=== PATIENT | female | born 1950 | race Caucasian/White ===

== ENCOUNTER 2017-09-16 16:19 | Emergency (ER) | payer MEDICARE, OTHER ==
[~2017-09-16] VITALS: Ht 170.2 cm; Wt 59.1 kg
[~2017-09-16 16:19] MED LIST: ADVIL200 MG PO; ASPIRIN E.C. 8181 MG PO; BENICAR HCT 12.1 TAB PO; CALCIUM + D 5001 TAB PO; COREG 3.123.125 MG/T PO; LASIX 20MG TABL20 MG PO; LIPITOR20 MG PO; LUTEIN8MG PO; MICROTHENE FN501 POW; MULTIVITAMIN WI1 CTB PO; TYLENOL 325MG325 MG PO; ULTRAM 50MG TAB50 MG PO; VITAMIN FOR EYES; [UNRECOGNIZED DRUG - OTHER]; [UNRECOGNIZED DRUG - OTHER]
[2017-09-16 16:33] VITALS: TEMP 98.5
[2017-09-16 17:01] LABS: BASO # 0.1 (0.0-0.2); EOS # 0.4 (0.0-0.7); EOS % 5.8 % (0-4.0); GRAN # 3.1 (1.4-6.5); GRAN % 50.5 % (42.2-75.2); HEMOGLOBIN 12.1 g/dl (12.5-16.0); MEAN CELL VOLUME 95 fl (80.0-100.0); MEAN CORPUSCULAR HEMOGLOBIN 32 pg (27.0-31.0); MEAN CORPUSCULAR HGB CONC 34 g/dl (33.0-37.0); MEAN PLATELET VOLUME 8.3 fl (7.4-10.4); MONO # 0.7 (0.1-0.6); MONO % 10.5 % (1.7-9.3); PLATELET COUNT 328 K/mm3 (130-400); RED BLOOD COUNT 3.75 M/mm3 (4.10-5.30); WHITE BLOOD COUNT 6.2 K/mm3 (4.8-10.8)
[2017-09-16 17:07] LABS: HEMATOCRIT 35.6 % (37.0-47.0)
[2017-09-16 17:13] LABS: INR 1.5 (0.8-3.0); PROTHROMBIN TIME 17.2 SECONDS (9.7-12.8)
[2017-09-16 17:18] LABS: ADJUSTED CALCIUM 8.9 mg/dL (8.4-10.2); ALANINE AMINOTRANSFERASE 38 U/L (9-52); ALBUMIN 4.1 gm/dL (3.5-5.0); ALKALINE PHOSPHATASE 79 U/L (50-136); ANION GAP 10 mmol/L (7-16); BILIRUBIN,TOTAL 0.5 mg/dL (0.0-1.0); BLOOD UREA NITROGEN 14 mg/dL (7-17); CARBON DIOXIDE 25 mmol/L (22-30); CHLORIDE 95 mmol/L (98-107); CREATINE KINASE 72 U/L (30-135); CREATININE, serum 1.17 mg/dL (0.52-1.25); GLUCOSE 104 mg/dL (74-106); POTASSIUM 3.6 mmol/L (3.4-5.0); SODIUM 130 mmol/L (137-145); TOTAL PROTEIN 7.8 gm/dL (6.4-8.2)
[2017-09-16 17:30] LABS: B-TYPE NATRIURETIC PEPTIDE 158 pg/mL (0-125)
[2017-09-16 17:32] LABS: TROPONIN-I < 0.012 ng/mL (0.000-0.034)
[2017-09-16] MEDS ORDERED: AMOXICILLIN 8751 TAB PO (19:43)
[2017-09-16 21:16] VITALS: BP 145/85; PULSE 65
== END 2017-09-16 21:16 | disposition home or self-care (01) ==
LOC: COL.ER 16:19
PROVIDERS: Emergency Medicine
DX: J32.9 Chronic sinusitis, unspecified (principal); R07.9 Chest pain, unspecified; I10 Essential (primary) hypertension; E78.5 Hyperlipidemia, unspecified; I48.91 Unspecified atrial fibrillation; Z90.49 Acquired absence of other specified parts of digestive tract; Z90.89 Acquired absence of other organs; Z98.890 Other specified postprocedural states; Z79.82 Long term (current) use of aspirin

== ENCOUNTER 2017-11-12 18:17 | Emergency (ER) | payer MEDICARE, OTHER ==
[~2017-11-12] VITALS: Ht 170.2 cm; Wt 61.4 kg
[~2017-11-12 18:17] MED LIST changes: +AMOXICILLIN 8751 TAB PO
[2017-11-12 18:23] VITALS: TEMP 98.9
[2017-11-12 19:21] LABS: COLLECTION METHOD CLEAN CATCH
[2017-11-12 19:27] LABS: PH 5 (5-8); URINE APPEARANCE Clear; URINE BACTERIA Rare /hpf; URINE BILIRUBIN Negative (NEGATIVE); URINE BLOOD Negative (NEGATIVE); URINE COLOR Yellow; URINE GLUCOSE Negative (NEGATIVE); URINE KETONE Negative (NEGATIVE); URINE LEUKOCYTE ESTERASE 2+ (NEGATIVE); URINE NITRATE Negative (NEGATIVE); URINE PROTEIN(semi-quant) Negative (NEGATIVE); URINE UROBILINOGEN Negative (NEGATIVE)
[2017-11-12] MEDS ORDERED: COLACE 100100 MG/CAP PO (21:43)
[2017-11-12 22:06] VITALS: BP 170/74; PULSE 66
== END 2017-11-12 22:06 | disposition home or self-care (01) ==
LOC: COL.ER 18:17
PROVIDERS: Emergency Medicine
DX: K59.00 Constipation, unspecified (principal); Z90.710 Acquired absence of both cervix and uterus; Z79.82 Long term (current) use of aspirin

== ENCOUNTER 2020-05-19 14:17 | Inpatient (IN) | payer MEDICARE, OTHER ==
[~2020-05-19] VITALS: Ht 170.2 cm; Wt 70.0 kg
[~2020-05-19 14:17] MED LIST changes: -CALCIUM + D 5001 TAB PO; +COLACE 100100 MG/CAP PO; +DYMISTA1 SPR NS; +OS-CAL 500 + D1 TAB PO; -[UNRECOGNIZED DRUG - OTHER]
[2020-07-29] VITALS (7 sets, daily range): BP systolic 91–122; BP diastolic 57–69; PULSE 71–79; TEMP 97.6–98.5
[2020-07-29] MEDS ORDERED: COREG 6.256.25 MG/TA PO (07:41)
[2020-07-29] MEDS ORDERED: MACRODANTIN100 PO (07:42)
[2020-07-29] MEDS ORDERED: LIPITOR20 MG PO (07:42)
[2020-07-29] MEDS ORDERED: BENICAR HCT 251 TAB PO (07:43)
[2020-07-29] MEDS ORDERED: PHENERGAN 25 TA25 MG (07:44)
[2020-07-29] MEDS ORDERED: FERROUSAL325 MG PO (07:45)
[2020-07-29] MEDS ORDERED: BACTROBAN 22GM22 GM TP (07:45)
[2020-07-29] MEDS ORDERED: FOLIC ACID0.4 MG PO (07:46)
[2020-07-29] MEDS ORDERED: ADVIL200 MG PO (07:48)
[2020-07-29] MEDS ORDERED: XARELTO10 MG PO (07:59)
[2020-07-29 08:16] LABS: COLLECTION METHOD CATHETER
[2020-07-29 08:21] LABS: PH 7 (5-8); SQUAMOUS EPITHELIAL None Seen /hpf; URINE APPEARANCE Clear; URINE BACTERIA None Seen /hpf; URINE BILIRUBIN Negative (NEGATIVE); URINE BLOOD Negative (NEGATIVE); URINE COLOR Yellow; URINE GLUCOSE Negative (NEGATIVE); URINE KETONE Negative (NEGATIVE); URINE LEUKOCYTE ESTERASE Negative (NEGATIVE); URINE NITRATE Negative (NEGATIVE); URINE PROTEIN(semi-quant) Negative (NEGATIVE); URINE RBC 0-2 /hpf; URINE UROBILINOGEN Negative (NEGATIVE)
--- NOTE | 2020-07-29 13:39 | NUR ---
[employer] Faculty Member met with patient's , Olga (ph#[phone]) to discuss discharge planning as patient was still in surgery at this time. KARAN collaborated with RN, Analy who advised patient was having some pain down in the PACU which delayed her coming back up. Olga advised that he and patient live on a farm outside of [place], [place] with their two dogs. Olga states that patient was seeing Dr. Kim for primary care but that she moved, so patient recently switched to a provider in [place]. Patient obtains medications from [facility] in [place] with no difficulties. Patient does not normally use any DME but has a walker for when she discharges. Olga reports patient is normally independent with ADLS and plans to return home with outpatient PT, which has been set up in [place]. Olga states he and patient have discussed updating DPOA-HC as the one they completed was done over 20 years ago. SW will follow up with patient to assist with DPOA if she desires. Olga advised they have a son that is an immigration attorney in [facility]. KARAN will continue to follow for any discharge needs.
--- NOTE | 2020-07-29 13:40 | NUR ---
PATIENT BACK IN ROOM 328 POST OP. ORIENTED BUT DROWSY. VSS. PACU REPORTED PAIN ISSUES. PATIENT WAS GIVEN SEVERAL DIFFERENT PAIN MEDS TO HELP WITH PAIN. LTK DRESSING IS CD&I WITH ACEWRAP AND ICE PACK IN PLACE. TEDS TO RLE. SCD'S TO BLE. POSITIVE PEDAL PULSES TO BLE. NO C/O N/V. LIQUIDS AT BEDSIDE. IV FLUIDS INFUSING VIA PUMP INTO LEFT HAND IV. HEAD TO TOE ASSESSMENT WNL. AT BEDSIDE. CALL LIGHT IN REACH.
--- NOTE | 2020-07-29 14:30 | NUR ---
Initial visit; Patient thanked Adjunct Faculty for looking in on her and offering prayer and God's blessings for a thorough and rapid recovery.
--- NOTE | 2020-07-29 15:50 | NUR ---
PATIENT 1-2 ASSIST TO BEDSIDE COMMODE. PATIENT WAS NAUSEATED DURING ACTIVITY. PATIENT WAS ABLE TO VOID AND HAVE BM POST OP. PATIENT IS NOW BACK IN BED RESTING.
--- NOTE | 2020-07-29 19:27 | NUR ---
RECEIVED CHANGE OF SHIFT REPORT FROM DAY SHIFT NURSEMEREDITH. PATIENT SLEEPING DURING REPORT.
--- NOTE | 2020-07-29 20:00 | NUR ---
DECREASED ROM/STRENGTH TO L KNEE D/T SURGERY. DENIES NUMBNESS/TINGLING TO EXTREMITIES. DENIES CHEST PAIN/SHORTNESS OF BREATH. PATIENT IN CONTACT ISOLATION. IVF INFUSING WITH NO PROBLEMS, PATIENT NAUSEA AFTER AMBULATING TO AND FROM BATHROOM AND SHORT DISTANCE AROUND FOOT OF BED THEN DANGLING AT BEDSIDE. OBSERVED NO EMESIS, HAD DRY HEAVES. OXYGEN CONTINUES PER NC, INITALLY AT 2LPM THAT WAS DECREASED PER RT REC TO 1 LPM.
[2020-07-30] VITALS (7 sets, daily range): BP systolic 90–134; BP diastolic 50–75; PULSE 80–111; TEMP 97.9–98.6
[2020-07-30 06:59] LABS: HEMATOCRIT 27.8 % (37.0-47.0); HEMOGLOBIN 9.4 g/dl (12.5-16.0)
--- NOTE | 2020-07-30 07:41 | NUR ---
CHANGE OF SHIFT REPORT GIVEN TO DAY SHIFT NURSELENORE. SALINE LOCK IN PLACE. DENIES URGE TO VOID.
--- NOTE | 2020-07-30 07:56 | NUR ---
CONTACTED PACU STAFF RE:MEDICATION REVIEW PER REQUEST.
--- NOTE | 2020-07-30 09:58 | NUR ---
PT UP TO RECLINER FOR BREAKFAST WITH SBA X1, PAIN CONTROLLED WITH PO MEDS. DRESSING CHANGE COMPLETE PER ORDERS. AQUCEL PLACED OVER INCISION. PT TOLERATED WELL. TEDS PLACED BILATERALLY. PT DENIES NEEDS AT THIS TIME.
--- NOTE | 2020-07-30 16:42 | NUR ---
Driller Helper followed up with patient to review discharge plan. Patient states she is in the process of switching primary care to [place], but would like to have a recommendation for providers. Patient may be interested in [facility]. Patient is interested in DPOA-HC form, SW provided. Patient plans to return home upon discharge and SW will continue to follow.
--- NOTE | 2020-07-30 17:44 | NUR ---
PT UP TO BR WITH SBAX1 VOIDED AND RETURNED TO BED.
--- NOTE | 2020-07-30 20:00 | NUR ---
Received report from Bryan Jordan. Pt currently sitting in bed and has her call light within reach and her bed is in lowest position.
--- NOTE | 2020-07-31 02:48 | NUR ---
Pt is currently back in bed. Pt ambulated to the restroom. When asked if she was having pain pt stated yes but she doesn't need anything right now. Pt did seem a little confused when she go up to ambulate to the restroom .Pt has her call light within reach and her bed is in lowest position.
[2020-07-31 04:00] VITALS: BP 134/62; PULSE 87; TEMP 97.9
--- NOTE | 2020-07-31 06:56 | NUR ---
Reported off to EDDIE Jordan.Pt has her breakfast tray and is eating her breakfast at this time. She has her call light within reach.
[2020-07-31 07:41] VITALS: BP 138/50; PULSE 84; TEMP 98
--- NOTE | 2020-07-31 08:34 | NUR ---
PT UP TO RECLINER FOR BREAKFAST. VOIDED AND RETURNED TO RECLINER. DRESSING TO LEFT KNEE CDI. PT IS HAVING SOME DIFFICULTY FINDING WORDS. POSSIBLY R/T NARCOTICS, ULTRAM USED FOR PAIN AT THIS TIME. NOC SHIFT REPORTED SIMILAR ISSUES. DECREASED TO 1 PAIN PILL OVER NOC.
--- NOTE | 2020-07-31 10:16 | NUR ---
PT BECAME NAUSEATED AND DIZZY DURING PT. PT REFUSING SHOWER AT THIS TIME WITH OT. IV ZOFRAN GIVEN. OT WILL TRY AGAIN AFTER PM THERAPY.
[2020-07-31 11:17] VITALS: BP 124/57; PULSE 86; TEMP 98.1
--- NOTE | 2020-07-31 14:18 | NUR ---
MINOR NAUSEA REPORTED DURING AND AFTER THERAPY. COMPLETED STAIRS. PLAN ON DISCHARGE LATER THIS PM.
--- NOTE | 2020-07-31 14:57 | NUR ---
PT RESTING IN BED DENIES N/V.
[2020-07-31] MEDS ORDERED: NORCO 325 MG-7.1 TAB PO (16:27)
[2020-07-31] MEDS ORDERED: ULTRAM 50MG TAB50 MG PO (16:28)
[2020-07-31] MEDS ORDERED: SENOKOT S 50 MG1 TAB PO (16:28)
[2020-07-31] MEDS ORDERED: ZOFRAN 4MG T4 MG/TAB PO (16:29)
[2020-07-31 16:35] VITALS: BP 126/45; PULSE 98; TEMP 98.3
--- NOTE | 2020-07-31 16:44 | NUR ---
DISCHARGE INSTRUCTIONS REVIEWED WITH PATEINT. QUESTIONS ANSWERED, PT LEFT IN WHEEL CHAIR TO ED ENTRANCE.
== END 2020-07-31 17:00 | disposition home or self-care (01) | DRG 470 ==
LOC: JCC 07-29 06:55
PROVIDERS: ADMIT Orthopaedic Surgery
PROC: 0SRD0J9 Replacement of Left Knee Joint with Synthetic Substitute, Cemented, Open Approach (ICD-10-PCS; principal; 2020-07-29 10:15)
DX: M17.12 Unilateral primary osteoarthritis, left knee (principal); I50.9 Heart failure, unspecified; I48.91 Unspecified atrial fibrillation; D50.9 Iron deficiency anemia, unspecified; I10 Essential (primary) hypertension; Z79.01 Long term (current) use of anticoagulants; Z79.891 Long term (current) use of opiate analgesic; Z79.1 Long term (current) use of non-steroidal anti-inflammatories (NSAID); Z96.641 Presence of right artificial hip joint; Z88.1 Allergy status to other antibiotic agents
CPT/HCPCS: A9284; C1776; J0690; J1100; J1170; J1885; J2270; J2405; J2704; J3010; J7030; J7120

== ENCOUNTER → 2020-07-23 | Outpatient (CLI) | payer MEDICARE, OTHER ==
[~2020-07-23] MED LIST changes: +BACTROBAN 22GM22 GM TP; +BENICAR HCT 251 TAB PO; +COREG 6.256.25 MG/TA PO; +FERROUSAL325 MG PO; +FOLIC ACID0.4 MG PO; +MACRODANTIN100 PO; +NORCO 325 MG-7.1 TAB PO; +PHENERGAN 25 TA25 MG; +SENOKOT S 50 MG1 TAB PO; +XARELTO10 MG PO; +ZOFRAN 4MG T4 MG/TAB PO
== END ==
LOC: COL.LAB 08:00
DX: Z20.828 Contact with and (suspected) exposure to other viral communicable diseases (principal)